=== PATIENT | female | born 2000 | race Caucasian/White ===

== ENCOUNTER 2020-10-05 19:36 | Emergency (ER) | payer OTHER, SELFPAY ==
[2020-10-05 19:36] VITALS: BP 144/84; PULSE 96; RESP 14; TEMP 37.1; O2SAT 100; BMI 39.1
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
== END 2020-10-05 20:04 | disposition home or self-care (01) ==
PROVIDERS: Emergency Provider Emergency Medicine
DX: M62.838 Other muscle spasm (principal); M54.2 Cervicalgia; V89.2XXA Person injured in unspecified motor-vehicle accident, traffic, initial encounter; R51.9 Headache, unspecified
CPT/HCPCS: 99281

== ENCOUNTER 2021-03-06 11:18 | Outpatient (CLI) | payer OTHER, MEDICAID, SELFPAY ==
--- NOTE | 2021-03-06 12:58 | PM.OBTRLD ---
Visit Information Visit Information Date of evaluation: 03/06/21 On-call OB Provider: foist Reason for Evaluation: Yes rupture of membranes Vital Signs Vital Signs: Blood pressure 130/77, pulse of 89, temperature 97.2? [facility] Social History Smoking Status: Unknown if ever smoked Review of Systems Review of Systems Narrative: Patient had a gush of fluid and was concerned that she had rupture membranes. No bleeding. Good movement. ROS: Yes All systems reviewed with the patient and are negative except as otherwise documented Evaluation Evaluation Baseline heart rate: 130 Variability: Moderate (11-25) monitor accelerations: Present Monitor Decelerations: Absent Contraction Frequency (minutes): 0 Category of Tracing: Reactive Status: Category l Non-invasive Membranes Rupture Test: negative Diagnosis, Plan/Disposition Final Diagnosis (1) 38 weeks gestation of : Status: Acute (2) False labor after 37 weeks of gestation without delivery: Status: Acute Plan/Disposition Plan: Patient with reactive nonstress test, no evidence of labor, normal vital signs, negative test for rupture membranes. OB Disposition: home
== END 2021-03-06 13:15 | disposition home or self-care (01) ==
LOC: OB 03-12 09:20
PROVIDERS: PCP Nurse Practitioner Obstetrics & Gynecology; Referring Provider Specialist; Visit Provider Specialist
DX: Z03.71 Encounter for suspected problem with amniotic cavity and membrane ruled out (principal); O47.1 False labor at or after 37 completed weeks of gestation; Z3A.38 38 weeks gestation of pregnancy
CPT/HCPCS: 59025; 84112; G0378; G0379

== ENCOUNTER 2021-03-14 11:29 | Observation (INO) | payer OTHER, MEDICAID, SELFPAY ==
[2021-03-14 13:10] LABS: Appearance Urine UA SL CLOUDY; Bilirubin Urine UA NEGATIVE (NEGATIVE); Color Urine UA YELLOW; Glucose Urine UA NEGATIVE (Negative); Ketones Urine UA NEGATIVE (NEGATIVE); Leukocyte Esterase Urine UA 1+ (NEGATIVE); Nitrite Urine UA NEGATIVE (Negative); Occult Blood Urine UA NEGATIVE (Negative); Protein Urine UA TRACE (Negative); Urobilinogen Urine UA 0.2 E.U./dL (0.2)
[2021-03-14 13:11] LABS: RBC Urine None Seen (0-5/HPF)
[2021-03-14 13:24] LABS: Amorphous Sediment Urine 1+; Bacteria Urine Moderate (10-30); Squamous Epithelial Cell Urine 5-10 /HPF (0-5/HPF); WBC Urine 1-5/HPF (0-5/HPF)
== END 2021-03-14 13:33 | disposition home or self-care (01) ==
PROVIDERS: Admitting Provider Obstetrics & Gynecology; PCP Nurse Practitioner Obstetrics & Gynecology; Referring Provider Obstetrics & Gynecology; Visit Provider Obstetrics & Gynecology
DX: O12.03 Gestational edema, third trimester (principal); O26.893 Other specified pregnancy related conditions, third trimester; R51.9 Headache, unspecified; Z3A.39 39 weeks gestation of pregnancy
CPT/HCPCS: 59025; 81003; 81015; G0378; G0379

== ENCOUNTER 2021-03-17 22:35 | Inpatient (IN) | payer OTHER, MEDICAID, SELFPAY ==
[2021-03-18 00:12] LABS: Add Manual Diff / Slide Review NO; Basophils Absolute Auto 100 /uL (0-100); Basophils Percent Auto 0.5 % (0-2); Eosinophils Absolute Auto 100 /uL (0-450); Eosinophils Percent Auto 0.5 % (2-4); Hematocrit 31.1 % (36-46); Hemoglobin 10.1 g/dL (12.0-16.0); Lymphocytes Absolute Auto 1900 /uL (1100-4500); Lymphocytes Percent Auto 17.8 % (25-40); Mean Corpuscular HGB Conc 32.5 % (30-36); Mean Corpuscular Hemoglobin 22.8 PG (26-34); Mean Corpuscular Volume 70.2 fL (80-100); Monocytes Absolute Auto 800 /uL (0-900); Monocytes Percent Auto 7.4 % (3-14); Neutrophils Absolute Auto 7900 /uL (1500-7000); Neutrophils Percent Auto 73.8 % (50-75); Platelet Count 231 X10^3/uL (150-400); Red Blood Cell Count 4.43 X10^6/uL (4.0-5.2); Red Cell Distribution Width 17.4 % (11.6-14.8); White Blood Cell Count 10.7 X10^3/uL (4.5-11.0)
[2021-03-18] MEDS: LACTATED RINGERS 1,000 ML 100 ML IV ×2 (00:14→03:06)
[2021-03-18] MEDS: PENICILLIN G POTASSIUM 5,000,000 UNIT in DEXTROSE 5% IN WATER 250 ML IV (00:16)
[2021-03-18 00:17] VITALS: BP 128/75
[2021-03-18 01:05] LABS: COVID19 - ADMIT (NP swab/PCR) Negative (Negative)
[2021-03-18] MEDS: ONDANSETRON 4 MG/2 ML INJ IV (02:09)
--- NOTE | 2021-03-18 03:08 | PM.AN.REGBLK ---
Regional Block Pre-procedure Procedure: Continuous Lumbar Epidural for L&D Attending OB provider: Janiya Mcneil PM/CAROL narrative: term labor, no complications, BMI 44 ASA Class: III (BMI 44) Labs: Hct 31.1 % (36-46) L 03/17/21 23:20 Plt Count 231 X10^3/uL (150-400) 03/17/21 23:20 Medications: Current Medications Generic Name Dose Route Start Last Admin Trade Name Freq PRN Reason Stop Dose Admin Calcium Carbonate 1,000 mg 03/17/21 23:46 Calcium Carbonate 500 Mg Tab PO Q2HR PRN Dyspepsia Carboprost Tromethamine 250 mcg 03/17/21 23:46 Carboprost 250 Mcg/Ml Ampul IM Q90M PRN Bleeding Fentanyl 100 mcg 03/17/21 23:46 Fentanyl 100 Mcg/2 Ml Inj IV Q1H PRN Pain, Severe (7-10) Lactated Ringer's 1,000 mls @ 100 mls/hr 03/17/21 23:45 03/18/21 03:06 Lactated Ringers IV 100 mls/hr CONT ANYI Administration Oxytocin/Lactated Ringer's 30 unit in 500 mls @ 200 mls/hr 03/17/21 23:46 Oxytocin Premix IV CONT PRN Bleeding Protocol Tranexamic Acid 1,000 mg/ 100 mls @ 200 mls/hr 03/17/21 23:46 Sodium Chloride IV NOW PRN Bleeding Penicillin G Potassium 3,000,000 unit in 50 mls @ 100 mls/hr 03/18/21 04:16 Penicillin G Potassium IV Q4H ANYI Methylergonovine Maleate 0.2 mg 03/17/21 23:46 Methylergonovine 0.2 Mg Tablet PO Q6HR PRN Heavy Bleeding Methylergonovine Maleate 0.2 mg 03/17/21 23:46 Methylergonovine 0.2 Mg/Ml Vial IM NOW PRN Bleeding Metoclopramide HCl 10 mg 03/17/21 23:46 Metoclopramide 10 Mg/2 Ml Inj IV NOW PRN Nausea And Vomiting Misoprostol 800 mcg 03/17/21 23:46 Misoprostol 200 Mcg Tablet ME NOW PRN Bleeding Misoprostol 1,000 mcg 03/17/21 23:46 Misoprostol 200 Mcg Tablet ME NOW PRN Bleeding Misoprostol 400 mcg 03/17/21 23:46 Misoprostol 200 Mcg Tablet SL NOW PRN Bleeding Naloxone HCl 0.2 mg 03/17/21 23:46 Naloxone 0.4 Mg/Ml Vial IV Q2MIN PRN Opiate Reversal Ondansetron HCl 4 mg 03/17/21 23:46 03/18/21 02:09 Ondansetron 4 Mg/2 Ml Inj IV 4 mg Q4HR PRN Administration Nausea And Vomiting Oxytocin 10 unit 03/17/21 23:46 Oxytocin 10 Unit/Ml Vial IM NOW PRN Bleeding Allergies: Allergies Allergy/AdvReac Type Severity Reaction Status Date / Time No Known Drug Allergies Allergy Verified 03/17/21 23:45 Procedure Insertion date: 03/18/21 Insertion time: 02:50 Prep/Local: betadine x3 Interspace: L3-4 Patient position: sitting Needle: 18 gauge Hustead (CSE: 27g Pencan through Hustead, clear CSF, 1mL 0.25% bupiv) Loss of resistance with: saline DANIELE at (cm): 7 Catheter placed at SKIN (cm): 13 Catheter in SPACE (cm): 6 Insertion: No CSF, No Blood, No Paresthesia with insertion, No Paresthesia with injection and No Test dose reaction Initial Medications TEST DOSE time: 02:52 TEST DOSE: 1.5% lidocaine with epinephrine 1:200k (mL): 3 BOLUS DOSE time: 03:04 BOLUS DOSE (mL): 3 BOLUS DOSE med: other (infusate) Infusion INFUSION: 0.125% bupivacaine and with fentanyl 2 mcg/mL Initial rate (mL/hr): 8 Subsequent interventions: Post-procedure Anesthesia time START: 02:37 Anesthesia time END: 08:07 Post-procedure Anesthesia Assessment: Yes CV function: HR/BP stable, Yes Resp function: RR/sat/airway adequate, Yes Mental status appropriate and No Anesthesia complications
[2021-03-18] MEDS: PENICILLIN G POTASSIUM 3,000,000 UNIT/50 ML FROZ.PIGGY 100 UNIT IV (04:17)
[2021-03-18 05:55] VITALS: BP 137/84
--- NOTE | 2021-03-18 07:30 | PM.OBHP.1 ---
OB HPI Date/Time Date of admission: 03/17/21 Date Patient Seen: 03/18/21 Time Patient Seen: 07:31 History of Present Condition Chief complaint: WATER BROKE : 1 Para: 0 Estimated Date of Delivery: 03/20/21 Estimated Gestational Age (weeks): 39 Narrative: Kayy Oviedo is a 20 year old female admitted in active labor History of Present care: good care, initiated at week # (9), number of visits (10) and pounds weight gain (65) Obstetrical complications: none Medical complications: none Preadmission Labs Blood type: A (+) positive -: Antibody screen: negative, GBS status: positive, HBsAG: negative and HIV: negative -: Chlamydia screen: not detected -: Rubella: immune and Varicella: immune HCAB: negative Quad screen: Normal 1 hr GTT: 94 Evaluation Evaluation Baseline heart rate: 140 Variability: Moderate (11-25) monitor accelerations: Present Monitor Decelerations: Absent Contraction Frequency (minutes): 4 Uterine Contraction Intensity: Strong/Firm Category of Tracing: Reactive Status: Category l Cervical dilation (cm): 10 Cervical effacement (%): 100 station: 0 Laboratory results: Laboratory Tests 03/17/21 03/17/21 03/17/21 23:20 23:20 23:20 WBC 10.7 RBC 4.43 Hgb 10.1 L Hct 31.1 L MCV 70.2 L MCH 22.8 L MCHC 32.5 RDW 17.4 H Plt Count 231 Neut % (Auto) 73.8 Lymph % (Auto) 17.8 L [place] % (Auto) 7.4 Eos % (Auto) 0.5 L Baso % (Auto) 0.5 Neut # (Auto) 7900 H Lymph # (Auto) 1900 [place] # (Auto) 800 Eos # (Auto) 100 Baso # (Auto) 100 SARS-CoV-2 (PCR) Negative Blood Type A Positive Antibody Screen Negative PFSH Medical History (Updated 03/16/21 @ 17:11 by June Nicole RN) Generalized anxiety disorder Iron deficiency anemia due to chronic blood loss Morbid obesity with BMI of 45.0-49.9, adult Size of fetus inconsistent with dates, antepartum Vitamin D deficiency Social History Smoking Status: Never smoker Meds Home Medications and Allergies Home Medications Medication Instructions Recorded Confirmed Type No Known Home Medications 03/18/21 03/18/21 History Allergies Allergy/AdvReac Type Severity Reaction Status Date / Time No Known Drug Allergies Allergy Verified 03/17/21 23:45 Review of Systems Review of Systems Narrative: Patient arrived on Labor and delivery with spontaneous rupture membranes and regular contractions. She denies headaches, scotomata, epigastric pain. She has had good movement. ROS: Yes All systems reviewed with the patient and are negative except as otherwise documented Exam Vital Signs (past 8 hours): Blood pressure 133/64, temperature 36.5?, pulse 110- 03/18/21 00:17 03/18/21 05:55 Blood Pressure 128/75 137/84 Narrative Exam Narrative: HEENT exam within normal limits. Lungs are clear to auscultation percussion. Heart is regular rate and rhythm no S3-S4 murmurs. Fetus is vertex. Extremities with edema and nontender. Objective Labs Result Diagrams: 03/17/21 23:20 Labs: Laboratory Results - last 24 hr 03/17/21 03/17/21 03/17/21 23:20 23:20 23:20 WBC 10.7 RBC 4.43 Hgb 10.1 L Hct 31.1 L MCV 70.2 L MCH 22.8 L MCHC 32.5 RDW 17.4 H Plt Count 231 Neut % (Auto) 73.8 Lymph % (Auto) 17.8 L [place] % (Auto) 7.4 Eos % (Auto) 0.5 L Baso % (Auto) 0.5 Neut # (Auto) 7900 H Lymph # (Auto) 1900 [place] # (Auto) 800 Eos # (Auto) 100 Baso # (Auto) 100 SARS-CoV-2 (PCR) Negative Blood Type A Positive Antibody Screen Negative Assessment and Plan Assessment and Plan Assessment and Plan narrative: 1 para 0 at 39 weeks gestation in active labor. Patient is group B strep positive and received 2 doses of ampicillin. Anticipate vaginal delivery.
--- NOTE | 2021-03-18 08:34 | PM.OBPRVD ---
Labor & Delivery Delivery date: 03/18/21 Intrapartal Events: None Delivery monitor: external FHT and external uterine Route of delivery: L&D Laceration Description: Perineal - 2nd Degree Delivery repair: chromic ( 3 0) Estimated blood loss (mL): 300 Anesthesia Type: Epidural Narrative: Patient arrived on labor and delivery with spontaneous rupture membranes in active labor. She received an epidural catheter for pain control. heart tones category 1 to category 2 throughout labor. Patient had a spontaneous vaginal delivery over an intact perineum. A loose nuchal cord was released. The viable female infant was placed on the maternal abdomen. After the cord stopped pulsating the cord was clamped, cut, and cord bloods obtained. The placenta delivered spontaneously, intact, with 3 vessels. There were no cervical or vaginal tears. A second-degree midline perineal tear was repaired with 3 0 chromic suture. Estimated blood loss 300 cc. Both and mother doing well. Baby 1: Infant gender: Female Presentation: vertex Position: Right Occiput Anterior Placenta delivery description: Spontaneous Cord Vessel Description: 3 Vessels and Nuchal Cord score (1 min): 8 score (5 min): 9 weight: 8 lb 10 oz Plan for aftercare: Routine care
[2021-03-18] MEDS: IBUPROFEN 600 MG TABLET PO (13:43)
[2021-03-18] MEDS: FERROUS SULFATE 325 MG TABLET PO (13:44)
[2021-03-19 08:22] LABS: Add Manual Diff / Slide Review NO; Basophils Absolute Auto 100 /uL (0-100); Basophils Percent Auto 1.1 % (0-2); Eosinophils Absolute Auto 100 /uL (0-450); Eosinophils Percent Auto 0.5 % (2-4); Hematocrit 28.8 % (36-46); Hemoglobin 9.2 g/dL (12.0-16.0); Lymphocytes Absolute Auto 1900 /uL (1100-4500); Lymphocytes Percent Auto 18.8 % (25-40); Mean Corpuscular Hemoglobin 22.5 PG (26-34); Mean Corpuscular Volume 70.4 fL (80-100); Monocytes Absolute Auto 400 /uL (0-900); Monocytes Percent Auto 4.3 % (3-14); Neutrophils Absolute Auto 7500 /uL (1500-7000); Neutrophils Percent Auto 75.3 % (50-75); Platelet Count 176 X10^3/uL (150-400); Red Blood Cell Count 4.09 X10^6/uL (4.0-5.2); Red Cell Distribution Width 17.7 % (11.6-14.8); White Blood Cell Count 9.9 X10^3/uL (4.5-11.0)
--- NOTE | 2021-03-19 09:06 | P.DS_ITS ---
Discharge Providers Provider Date of admission: 03/17/21 22:35 Discharge Date: 03/19/21 Primary care physician: ILSA Iraheta Consults: 03/18/21 01:52 Consult to Anesthesiology Routine Comment: jaime Consulting Provider: Anesthesiologist Reason for consultation: epidural placement 03/19/21 08:32 Consult to Forest Products Gatherer Routine Comment: Discharge provider: Janiya Mcneil MD Summary Hospital Course Date Patient Seen: 03/19/21 Time Patient Seen: 09:06 Diagnoses: 39 week gestation admitted in active labor with spontaneous vaginal delivery and repair of second-degree tear Hospital Course: Patient arrived on Labor and delivery in active labor. She received an epidural catheter for pain control. She had a spontaneous vaginal delivery of a viable female infant weighing 8 lb 10 oz. She had a second-degree tear repaired. She denies headaches, scotomata, epigastric pain. She is urinating and ambulating well. She is having some difficulty with breast-feeding and but will meet with the alliances consultant. Peripartum Data Delivery Method: Natural Vaginal Laceration Description: Perineal - 2nd Degree Procedures: epidural catheter, spontaneous vaginal delivery, repair of second- degree tear complications: none 1: Gender: Female Disposition of : home Discharge Diagnosis (1) Vaginal delivery: Status: Acute (2) Chronic anemia: Status: Acute Status at Discharge Cognitive/behavioral status at discharge: oriented Functional status at discharge: independent ambulation Overall status at discharge: patient is progressing back to baseline Time Spent with Patient Time attestation: Total time spent providing and/or coordinating discharge services: Time spent: Less than 30 minutes Objective Labs Result Diagrams: 03/19/21 08:05 Labs: Laboratory Results - last 24 hr 03/19/21 08:05 WBC 9.9 RBC 4.09 Hgb 9.2 L Hct 28.8 L MCV 70.4 L MCH 22.5 L MCHC 32.0 RDW 17.7 H Plt Count 176 Neut % (Auto) 75.3 H Lymph % (Auto) 18.8 L [place] % (Auto) 4.3 Eos % (Auto) 0.5 L Baso % (Auto) 1.1 Neut # (Auto) 7500 H Lymph # (Auto) 1900 [place] # (Auto) 400 Eos # (Auto) 100 Baso # (Auto) 100 Exam Vital Signs (past 8 hours): blood pressure 129/76, pulse of 111, temperature 97.6? Narrative Exam Narrative: Patient's abdomen is soft, nontender. Uterus is firm, at U, nontender. Mild lochia. Extremities with trace edema and nontender. Patient is Rh positive, rubella immune. Discharge Plan Discharge Plan Patient Disposition: Home Discharge orders & Medications Prescriptions: No Action No Known Home Medications RF: 0 Follow up/Referrals: Kacie Mitchell ARNP [Primary Care Provider] - Janiya Mcneil MD [Physician] - 1 Month Diet/Activity/Treatments Diet: Regular Activity: nothing in vagina for 4 weeks Skin/Wound/Dressing Care Report to your healthcare provider any signs of infection, such as:: chills, fever Discharge Data Primary Care Provider: Kacie Mitchell
[2021-03-19 19:35] VITALS: BP 131/75; PULSE 99; RESP 17; TEMP 36.4
== END 2021-03-19 20:30 | disposition home or self-care (01) | DRG 560 ==
PROVIDERS: Admitting Provider Specialist; PCP Nurse Practitioner Obstetrics & Gynecology; Referring Provider Specialist; Visit Provider Specialist
DX: O99.824 Streptococcus B carrier state complicating childbirth (principal); Z3A.39 39 weeks gestation of pregnancy; Z37.0 Single live birth; O70.1 Second degree perineal laceration during delivery; O69.81X0 Labor and delivery complicated by cord around neck, without compression, not applicable or unspecified; O99.02 Anemia complicating childbirth; D64.89 Other specified anemias; Z20.822 Contact with and (suspected) exposure to COVID-19
CPT/HCPCS: 01967; 36415; 59050; 59409; 85025; 86850; 86900; 86901; 87635; 99222; 99238; C9803; G0379; J2405; J2540